=== PATIENT | female | born 1990 | race Caucasian/White ===

== ENCOUNTER 2016-11-14 20:01 | Emergency (ER) | payer SELFPAY ==
[2016-11-14 20:15] VITALS: RESP 20; TEMP 96.5
[2016-11-14] MEDS ORDERED: Sodium Chloride 0.9% 1,000 ML PRIMARY IV ONE ×2 (20:17→21:21)
[2016-11-14] MEDS ORDERED: NORMAL SALINE 10 ML SYRINGE FLUSH IVP PRN (20:17)
[2016-11-14] MEDS ORDERED: ONDANSETRON 4 MG/2 ML VIAL IVP ONE (20:17)
[2016-11-14 20:47] LABS: BASOPHILS # (AUTO) 0.05 10*3/UL; BASOPHILS % (AUTO) 0.3 % (0-1); BILIRUBIN,URINE NEGATIVE (NEG); CLARITY,URINE CLEAR (CLEAR); EOSINOPHILS % (AUTO) 0.8 % (0-8); GLUCOSE, URINE (UA) NEGATIVE (NEG); HEMOGLOBIN 15.4 g/dL (12.0-16.0); IMM GRAN % (AUTO) 0.2 % (0-5); IMM GRAN# (AUTO) 0.04 10*3/UL; LEUKOCYTE ESTERASE ,URINE SMALL (NEG); LYMPHOCYTES # (AUTO) 4.99 10*3/uL; LYMPHOCYTES % (AUTO) 29.5 % (10-50); MEAN CORPUSCULAR HEMOGLOBIN 31.4 PG (27-31); MEAN CORPUSCULAR HGB CONC 36.7 g/dL (33-37); MEAN PLATELET VOLUME 10.5 FL (7.4-12.2); MONOCYTES # (AUTO) 0.65 10*3/UL (0.3-0.8); MONOCYTES % (AUTO) 3.8 % (5-15); NEUTROPHILS # (AUTO) 11.05 10*3/UL; NEUTROPHILS % (AUTO) 65.4 % (50-80); NITRATE,URINE NEGATIVE (NEG); OCCULT BLOOD,URINE NEGATIVE (NEG); PROTEIN,URINE NEGATIVE (NEG); RDW COEFFICIENT OF VARIATION 13.1 % (11.5-14.5); RED BLOOD COUNT 4.91 10^6/uL (4.20-5.40); WHITE BLOOD COUNT 16.92 10^3/uL (4.8-10.8)
[2016-11-14 20:50] LABS: PLATELET MORPHOLOGY COMMENT NORMAL MORPHOLOGY (NORM); URINE SAMPLE TYPE VOIDED SPECIMEN
[2016-11-14 20:53] LABS: BACTERIA,URINE FEW; SQUAMOUS EPITHELIAL CELL,UR MODERATE
[2016-11-14 20:58] LABS: SODIUM 139 meq/L (135-145)
[2016-11-14 20:59] LABS: AMYLASE 48 U/L (30-110); ASPARTATE AMINO TRANSFERASE 13 IU/L (8-39); BILIRUBIN,TOTAL 0.9 mg/dL (0.3-1.2); BLOOD UREA NITROGEN 10 mg/dL (7-22); CALCIUM 9.4 mg/dL (8.7-10.7); CHLORIDE 104 meq/L (98-112); CREATININE 0.5 mg/dL (0.50-1.20); EST GLOMERULAR FILTRATION > 60 (>60 ml/min/1.73m(2)); GLUCOSE 87 mg/dL (78-110); POTASSIUM 3.8 meq/L (3.8-5.2); TOTAL PROTEIN 7.7 g/dL (6.1-8.0)
--- NOTE | 2016-11-14 23:17 | DI ---
HISTORY: Left upper quadrant pain in first trimester. TECHNIQUE: Sonographic images of the pelvis were obtained and submitted for interpretation. FINDINGS: There is a fluid collection in the endometrial complex that is favored to represent a gest ational sac, though there is no pole. Mean sac diameter is 1.4 cm which corresponds with an est imated gestational age of 6 weeks, 2 days. Gestational age by last menstrual period is 5 weeks, 0 day s. The uterus exhibits otherwise normal morphology measuring 9.6 x 6.0 x 7.5 cm. The right ovary measure s 3.2 x 4.2 x 2.6 cm and the left ovary measures 2.7 x 1.6 x 2.3 cm. There is a probable right corpus luteal cyst. There is no adnexal mass or free cul-de-sac fluid. IMPRESSION: 1. Probable gestational sac with ultrasound age of approximately 6 weeks and 2 days, with an estimate d gestational age by last menstrual period of 5 weeks and 0 days. As there is no detectable po le, an ectopic cannot be excluded. Close clinical and laboratory follow-up is recommended w ith low threshold for repeat imaging. 2. Probable right corpus luteal cyst. NOTIFICATION: The above findings were phoned to Marco Hutchinson in the ER Department on 11/15/2016 at 1:25 am EST.
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
[2016-11-15] MEDS ORDERED: Sodium Chloride 0.9% 1,000 ML ONE (06:05)
== END 2016-11-14 22:54 | disposition home or self-care (01) ==
LOC: ER 20:01
DX: O26.891 Other specified pregnancy related conditions, first trimester (principal); R10.12 Left upper quadrant pain; Z3A.01 Less than 8 weeks gestation of pregnancy
CPT/HCPCS: 76801; 80053; 81001; 81003; 82150; 83690; 84702; 84703; 85025; 87088; 96361; 96374; 99283; J2405; J7030

== ENCOUNTER 2016-11-23 09:36 | Emergency (ER) | payer SELFPAY ==
[2016-11-23] MEDS ORDERED: Sodium Chloride 0.9% 1,000 ML PRIMARY IV ONE (09:45)
[2016-11-23] MEDS ORDERED: NORMAL SALINE 10 ML SYRINGE FLUSH IVP PRN (09:45)
[2016-11-23] MEDS ORDERED: ONDANSETRON 4 MG/2 ML VIAL IVP ONE (09:45)
[2016-11-23 09:53] VITALS: RESP 12; TEMP 97.8
[2016-11-23 09:56] LABS: BASOPHILS # (AUTO) 0.01 10*3/UL; BASOPHILS % (AUTO) 0.1 % (0-1); EOSINOPHILS % (AUTO) 0.2 % (0-8); HEMATOCRIT 42.6 % (37.0-47.0); HEMOGLOBIN 15.6 g/dL (12.0-16.0); IMM GRAN % (AUTO) 0.2 % (0-5); IMM GRAN# (AUTO) 0.04 10*3/UL; LYMPHOCYTES # (AUTO) 1.63 10*3/uL; MEAN CORPUSCULAR HEMOGLOBIN 31.6 PG (27-31); MEAN CORPUSCULAR HGB CONC 36.6 g/dL (33-37); MEAN PLATELET VOLUME 10.9 FL (7.4-12.2); MONOCYTES # (AUTO) 0.48 10*3/UL (0.3-0.8); NEUTROPHILS # (AUTO) 14.06 10*3/UL; NEUTROPHILS % (AUTO) 86.5 % (50-80); RDW COEFFICIENT OF VARIATION 13.3 % (11.5-14.5); RED BLOOD COUNT 4.93 10^6/uL (4.20-5.40); WHITE BLOOD COUNT 16.25 10^3/uL (4.8-10.8)
[2016-11-23 09:59] LABS: PLATELET MORPHOLOGY COMMENT NORMAL MORPHOLOGY (NORM)
[2016-11-23 10:01] LABS: AMYLASE 46 U/L (30-110); ASPARTATE AMINO TRANSFERASE 14 IU/L (8-39); BILIRUBIN,TOTAL 1.4 mg/dL (0.3-1.2); BLOOD UREA NITROGEN 8 mg/dL (7-22); CALCIUM 9.8 mg/dL (8.7-10.7); CHLORIDE 105 meq/L (98-112); CREATININE 0.5 mg/dL (0.50-1.20); EST GLOMERULAR FILTRATION > 60 (>60 ml/min/1.73m(2)); GLUCOSE 106 mg/dL (78-110); MAGNESIUM 1.5 mg/dL (1.6-2.4); POTASSIUM 4.1 meq/L (3.8-5.2); SODIUM 140 meq/L (135-145); TOTAL PROTEIN 7.4 g/dL (6.1-8.0)
--- NOTE | 2016-11-23 10:01 | EKG ---
[address] [address] Measurements Intervals [place] Rate: 65 P: 38 GA: 128 QRS: 73 QRSD: 99 T: 55 QT: 385 QTc: 396 Interpretive Statements SINUS RHYTHM WITH SINUS ARRHYTHMIA T WAVE ABNORMALITY CONSISTANT WITH JUVENILE PATTERN Compared to ECG 01/02/2014 05:13:55 No significant changes Electronically Signed On 11-23-16 14:24:21 [facility] by Louie Wright [id number]
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
[2016-11-23] MEDS ORDERED: Magnesium Sulfate 1gm (Premix) 1 GM in Dextrose 1 BAG IV ONE (10:34)
[2016-11-23] MEDS ORDERED: Magnesium Sulfate 1gm (Premix) 100 ML IV ONE (10:42)
[2016-11-23 10:56] LABS: CLARITY,URINE CLEAR (CLEAR); PH,URINE >=9.0 (5.0-8.5); URINE SAMPLE TYPE CLEAN CATCH URINE
[2016-11-23 10:57] LABS: BILIRUBIN,URINE NEGATIVE (NEG); GLUCOSE, URINE (UA) NEGATIVE (NEG); LEUKOCYTE ESTERASE ,URINE NEGATIVE (NEG); NITRATE,URINE NEGATIVE (NEG); OCCULT BLOOD,URINE NEGATIVE (NEG); PROTEIN,URINE 30 mg/dl (NEG); UROBILINOGEN,URINE 0.2 EU/dL (0.2)
[2016-11-23 11:08] LABS: SQUAMOUS EPITHELIAL CELL,UR MODERATE
[2016-11-23] MEDS ORDERED: ACETAMINOPHEN 325 MG TABLET PO ONE (11:15)
[2016-11-23] MEDS ORDERED: Prochlorperazine Edisylate Inj 10mg/2ml vial IVP ONE (11:15)
== END 2016-11-23 12:02 | disposition home or self-care (01) ==
LOC: ER 09:36
DX: O21.0 Mild hyperemesis gravidarum (principal); E86.0 Dehydration; R55 Syncope and collapse; R42 Dizziness and giddiness; R51 Headache; Z3A.01 Less than 8 weeks gestation of pregnancy
CPT/HCPCS: 80053; 81001; 81003; 82150; 82948; 83690; 83735; 84702; 85025; 93005; 93010; 96365; 96375; 99283; J0780; J3475

== ENCOUNTER 2016-12-01 19:29 | Emergency (ER) | payer SELFPAY ==
[2016-12-01] MEDS: Sodium Chloride 0.9% 1,000 ML PRIMARY IV ONE ×2 (19:30→20:54)
[2016-12-01 19:55] VITALS: RESP 18; TEMP 98.8
[2016-12-01] MEDS ORDERED: NORMAL SALINE 10 ML SYRINGE FLUSH IVP PRN (19:56)
[2016-12-01] MEDS ORDERED: ONDANSETRON 4 MG/2 ML VIAL IVP ONE (19:56)
[2016-12-01 20:00] LABS: BASOPHILS # (AUTO) 0.04 10*3/UL; BASOPHILS % (AUTO) 0.2 % (0-1); EOSINOPHILS % (AUTO) 0.4 % (0-8); HEMATOCRIT 45.2 % (37.0-47.0); HEMOGLOBIN 16.6 g/dL (12.0-16.0); IMM GRAN % (AUTO) 0.3 % (0-5); IMM GRAN# (AUTO) 0.05 10*3/UL; LYMPHOCYTES # (AUTO) 4.33 10*3/uL; LYMPHOCYTES % (AUTO) 23.8 % (10-50); MEAN CORPUSCULAR HGB CONC 36.7 g/dL (33-37); MEAN PLATELET VOLUME 10.9 FL (7.4-12.2); MONOCYTES # (AUTO) 1.07 10*3/UL (0.3-0.8); MONOCYTES % (AUTO) 5.9 % (5-15); NEUTROPHILS % (AUTO) 69.4 % (50-80); RDW COEFFICIENT OF VARIATION 12.9 % (11.5-14.5); RED BLOOD COUNT 5.35 10^6/uL (4.20-5.40); WHITE BLOOD COUNT 18.16 10^3/uL (4.8-10.8)
[2016-12-01 20:02] LABS: PLATELET MORPHOLOGY COMMENT NORMAL MORPHOLOGY (NORM)
--- NOTE | 2016-12-01 20:07 | EKG ---
[address] [address] Measurements Intervals [place] Rate: 81 P: 50 TN: 137 QRS: 80 QRSD: 105 T: 61 QT: 358 QTc: 395 Interpretive Statements SINUS RHYTHM WITH SINUS ARRHYTHMIA Compared to ECG 11/23/2016 10:00:06 T-wave abnormality no longer present Electronically Signed On 12-02-16 08:10:01 [facility] by Louie Wright [id number]
[2016-12-01 20:09] LABS: ASPARTATE AMINO TRANSFERASE 81 IU/L (8-39); BILIRUBIN,TOTAL 1.6 mg/dL (0.3-1.2); BLOOD UREA NITROGEN 11 mg/dL (7-22); CALCIUM 10.3 mg/dL (8.7-10.7); CHLORIDE 100 meq/L (98-112); CREATININE 0.4 mg/dL (0.50-1.20); EST GLOMERULAR FILTRATION > 60 (>60 ml/min/1.73m(2)); GLUCOSE 84 mg/dL (78-110); MAGNESIUM 1.7 mg/dL (1.6-2.4); POTASSIUM 3.8 meq/L (3.8-5.2); SODIUM 139 meq/L (135-145); TOTAL PROTEIN 8.2 g/dL (6.1-8.0)
[2016-12-01] MEDS ORDERED: Sodium Chloride 0.9% 1,000 ML PRIMARY IV ONE (20:34)
[2016-12-01 21:20] LABS: BILIRUBIN,URINE NEGATIVE (NEG); CLARITY,URINE CLEAR (CLEAR); GLUCOSE, URINE (UA) NEGATIVE (NEG); LEUKOCYTE ESTERASE ,URINE NEGATIVE (NEG); NITRATE,URINE NEGATIVE (NEG); OCCULT BLOOD,URINE NEGATIVE (NEG); PH,URINE 5.5 (5.0-8.5); PROTEIN,URINE NEGATIVE (NEG); URINE SAMPLE TYPE CLEAN CATCH URINE
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
== END 2016-12-01 21:39 | disposition home or self-care (01) ==
LOC: ER 19:29
DX: O21.0 Mild hyperemesis gravidarum (principal); R55 Syncope and collapse; Z3A.08 8 weeks gestation of pregnancy; Z72.0 Tobacco use
CPT/HCPCS: 80053; 81003; 83735; 84702; 85025; 87804; 93005; 93010; 96361; 96374; 99283; J2405; J7030

== ENCOUNTER 2017-01-05 18:34 | Emergency (ER) | payer OTHER ==
[2017-01-05 19:10] VITALS: RESP 14; TEMP 96.7
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
== END 2017-01-05 19:07 | disposition home or self-care (01) ==
LOC: ER 18:34
DX: S80.01XA Contusion of right knee, initial encounter (principal); M25.551 Pain in right hip; Z33.1 Pregnant state, incidental; W00.0XXA Fall on same level due to ice and snow, initial encounter; Y92.511 Restaurant or cafe as the place of occurrence of the external cause; Y99.0 Civilian activity done for income or pay
CPT/HCPCS: 99282

== ENCOUNTER 2017-01-25 09:07 | Emergency (ER) | payer SELFPAY ==
[2017-01-25 09:23] VITALS: RESP 18; TEMP 97.7
[2017-01-25 09:48] LABS: HEMATOCRIT 38.6 % (37.0-47.0); HEMOGLOBIN 13.8 g/dL (12.0-16.0); MEAN CORPUSCULAR HEMOGLOBIN 31.2 PG (27-31); MEAN CORPUSCULAR HGB CONC 35.8 g/dL (33-37); MEAN PLATELET VOLUME 10.2 FL (7.4-12.2); RED BLOOD COUNT 4.42 10^6/uL (4.20-5.40)
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
== END 2017-01-25 10:19 | disposition home or self-care (01) ==
LOC: ER 09:07
DX: O21.0 Mild hyperemesis gravidarum (principal); K92.0 Hematemesis; Z3A.15 15 weeks gestation of pregnancy
CPT/HCPCS: 36415; 85027; 99282

== ENCOUNTER 2017-02-14 20:58 | Outpatient (CLI) | payer SELFPAY ==
[2017-02-14] MEDS ORDERED: NORMAL SALINE 10 ML SYRINGE FLUSH IVP PRN (21:04)
[2017-02-14] MEDS ORDERED: Lactated Ringers 1,000 ML PRIMARY IV ONE (21:04)
[2017-02-14 21:55] LABS: BASOPHILS # (AUTO) 0.06 10*3/UL; BASOPHILS % (AUTO) 0.4 % (0-1); EOSINOPHILS # (AUTO) 0.13 10*3/UL; EOSINOPHILS % (AUTO) 0.8 % (0-8); HEMATOCRIT 39.3 % (37.0-47.0); HEMOGLOBIN 14.1 g/dL (12.0-16.0); LYMPHOCYTES # (AUTO) 4.31 10*3/uL; MEAN CORPUSCULAR HEMOGLOBIN 31.4 PG (27-31); MEAN CORPUSCULAR HGB CONC 35.9 g/dL (33-37); MEAN CORPUSCULAR VOLUME 87.5 FL (81-99); MONOCYTES # (AUTO) 0.72 10*3/UL (0.3-0.8); MONOCYTES % (AUTO) 4.5 % (5-15); NEUTROPHILS # (AUTO) 10.85 10*3/UL; NEUTROPHILS % (AUTO) 67.1 % (50-80); RED BLOOD COUNT 4.49 10^6/uL (4.20-5.40)
[2017-02-14 21:58] LABS: PLATELET MORPHOLOGY COMMENT NORMAL MORPHOLOGY (NORM); RBC MORPHOLOGY COMMENT NORMAL MORPHOLOGY (NORM); WBC MORPHOLOGY COMMENT NORMAL MORPHOLOGY (NORM)
[2017-02-14 22:16] LABS: AMPHETAMINE SCREEN NEGATIVE (NEG); CANNABINOID SCREEN,URINE POSITIVE (NEG); COCAINE SCREEN NEGATIVE (NEG); METHADONE URINE SCREEN NEGATIVE (NEG); METHAMPHETAMINES SCREEN,URINE NEGATIVE (NEG); OPIATE SCREEN,URINE NEGATIVE (NEG); TRICYCLIC ANTIDEPRESSANT,URINE NEGATIVE (NEG); URINE SAMPLE TYPE CLEAN CATCH URINE
[2017-02-14 23:09] LABS: HIV ANTIBODY NEGATIVE (N); HIV-1 P24 ANTIGEN NEGATIVE (N)
[2017-02-15 00:43] VITALS: RESP 20; TEMP 98.3
--- NOTE | 2017-02-15 12:31 | PDOC(PROG) ---
Intake - - Reason for Visit/Chief Complaint: Low Back Pain Admitted From: Home - Estimated Due Date: 07/05/17 Gestational Age in Weeks and Days: 20 Weeks and 0 Days : 4 Para: 2 Term Births: 2 Living Children: 2 - Labs Blood Type and Rh: O+ Maternal - Vital Signs Last Taken Vital Signs: Vital Signs - Last Taken Temperature 98.3 F 02/14/17 21:04 Pulse Rate 98 02/14/17 21:04 Respiratory Rate 20 02/14/17 21:04 Blood Pressure 104/62 02/14/17 21:04 Pulse Ox 98 02/14/17 21:04 - Uterine Activity Uterine Contraction Monitor Mode: Palpation Contraction Frequency(minutes): 1-2 Contraction Duration (seconds): 10-30 Uterine Contraction Pattern: Irregular Uterine Tone Measurement Phase: Resting Uterine Contraction Intensity: Moderate - Vaginal Discharge Vaginal Bleeding Amount: None Vaginal Discharge Amount: None Monitoring - Uterine Activity Uterine Contraction Monitor Mode: Palpation Contraction Frequency(minutes): 1-2 Contraction Duration (seconds): 10-30 Uterine Contraction Pattern: Irregular Uterine Tone Measurement Phase: Resting Uterine Contraction Intensity: Moderate Results - Labs CBC and BMP: 02/14/17 21:51 - Bedside Testing Bedside Urine Ketone: Negative Bedside Urine Leukocytes Esterase: Trace Bedside Urine Nitrite: Negative Bedside Urine Occult Blood: Negative Bedside Urine Protein: Trace Bedside Specific [place]: 1.030 Assessment and Plan - Patient Problems (1) Acute low back pain Status: Acute (2) Dehydration Status: AcuteSupport Text: Initially quite dehydrated, IVF and oral fluids given. Symptoms resolved. Stressed importance of establishing care with one of our providers for care. panel drawn. Urine tox screen positive for cannabinoids.
[2017-02-18 14:46] LABS: HEP B SURFACE AG Negative (Negative)
== END 2017-02-14 22:30 | disposition home or self-care (01) ==
LOC: OBOP 20:58
PROVIDERS: ATTEND Student in an Organized Health Care Education/Training Program
DX: O26.892 Other specified pregnancy related conditions, second trimester (principal); M54.5 Low back pain; E86.0 Dehydration; Z3A.20 20 weeks gestation of pregnancy
CPT/HCPCS: 59025; 80081; 80305; 81003; 82542; 86900; 86901; 87088; 96360; 99211

== ENCOUNTER → 2017-02-25 | Outpatient (CLI) | payer SELFPAY ==
--- NOTE | 2017-02-25 18:24 | DI ---
OBSTETRICAL ULTRASOUND, 02/25/2017 2:36 PM: Clinical History: Antepartum screening. Previous Exam: 11/14/2016. ADJUSTED DATE FROM EARLY OBUS: 10/10/2016. There is a single live IUP currently in breech presentation. Amnionic fluid content is normal. activity is observed as follows: Cardiac, extremity, and respiratory. The placenta is posterior corpu s and Grade 1. heart rate is 153 beats/minute and regular. There is a 3 vessel cord. The RVOT, LVOT and 4 chamber heart view are normal. The aortic arch and descending aorta are normal. Views of t he spine, face, and kidneys are unremarkable. BPD, HC, AC, and FL measurements are 48 mm, 183 m m, 159 mm, and 35 mm, respectively. These measurements correspond to EGA values of 20 weeks 4 days, 2 0 weeks 5 days, 21 weeks 1 day and 21 weeks 1 day, respectively. Composite EGA is 21 weeks 0 days. Th e US EDC is 07/08/2017. EDC by adjusted LMP is 07/13/2017. Readin. Single live fetus currently in breech presentation with normal amniotic fluid content. Placenta i s posterior corpus and grade 1. 2. The composite EGA is 21 weeks zero days with an ultrasound EDC of 07/08/2017. Based on the adjuste d LMP of 10/10/2016, the EDC would be 07/13/2017. 3. Antepartum screening is normal.
== END ==
LOC: US 14:32
PROVIDERS: ATTEND Family Medicine
DX: Z36 Encounter for antenatal screening of mother (principal); Z3A.20 20 weeks gestation of pregnancy
CPT/HCPCS: 76805

== ENCOUNTER → 2017-02-25 | Outpatient (CLI) | payer SELFPAY ==
[2017-02-25 16:20] LABS: BILIRUBIN,URINE NEGATIVE (NEG); COLOR,URINE YELLOW; GLUCOSE, URINE (UA) NEGATIVE (NEG); NITRATE,URINE NEGATIVE (NEG); OCCULT BLOOD,URINE NEGATIVE (NEG); PROTEIN,URINE NEGATIVE (NEG); UROBILINOGEN,URINE 0.2 mg/dL (0.2)
[2017-02-25 16:26] LABS: CLARITY,URINE CLEAR (CLEAR); SQUAMOUS EPITHELIAL CELL,UR FEW; URINE SAMPLE TYPE VOID
[2017-02-25 16:27] LABS: AMPHETAMINE SCREEN NEGATIVE (NEG); COCAINE SCREEN NEGATIVE (NEG); METHADONE URINE SCREEN NEGATIVE (NEG); METHAMPHETAMINES SCREEN,URINE NEGATIVE (NEG); OPIATE SCREEN,URINE NEGATIVE (NEG); TRICYCLIC ANTIDEPRESSANT,URINE NEGATIVE (NEG); URINE SAMPLE TYPE VOIDED SPECIMEN; URINE SPECIFIC GRAVITY - MAN 1.015
[2017-02-25 16:29] LABS: CANNABINOID SCREEN,URINE POSITIVE (NEG)
== END ==
LOC: US 13:44
PROVIDERS: ATTEND Family Medicine
DX: O99.322 Drug use complicating pregnancy, second trimester (principal); F19.90 Other psychoactive substance use, unspecified, uncomplicated; Z36 Encounter for antenatal screening of mother; Z3A.20 20 weeks gestation of pregnancy
CPT/HCPCS: 80305; 81001; 82542

== ENCOUNTER → 2017-05-16 | Outpatient (CLI) | payer SELFPAY ==
--- NOTE | 2017-05-17 18:17 | DI ---
LIMITED OBSTETRICAL ULTRASOUND, 05/16/2017 10:19 AM Clinical History: High-risk . The patient continues to smoke in the third trimester of pregn megha. Previous Exam: 02/25/2017. ADJUSTED LMP: 10/06/2016. There is a single live IUP currently in vertex presentation. Amnionic fluid content is normal. Amniot ic fluid index is 18.4 cm. activity is observed as follows: cardiac and extremity. The placenta is posterior corpus and Grade 2. heart rate is 132 beats/minute and regular. BPD, HC, AC, and FL measurements are 79 mm, 294 mm, 276 mm, and 61 mm, respectively. These measurements correspond to EGA values of 31 weeks 5 days, 32 weeks 4 days, 31 weeks 5 days, and 31 weeks 5 days, respectively. C omposite EGA is 32 weeks 0 days. The US EDC is 07/11/2017. EDC by adjusted LMP is 07/13/2017. LMP percent ile is 40%. Estimated weight is 1830 g, plus or minus 267 g. Readin. Single live fetus with vertex presentation and normal amniotic fluid content. Placenta is posteri or corpus and grade 2. 2. The composite EGA is 32 weeks zero days with an ultrasound EDC of 07/11/2017. Based on the adjusted LMP date of 10/06/2016, the EDC would be 07/13/2017. 3. LMP percentile is 40%. Estimated weight is 1830 g, plus or minus 267 g.
== END ==
LOC: US 10:16
PROVIDERS: ATTEND Family Medicine
DX: O99.333 Smoking (tobacco) complicating pregnancy, third trimester (principal); Z3A.31 31 weeks gestation of pregnancy
CPT/HCPCS: 76815

== ENCOUNTER → 2017-06-18 | Outpatient (CLI) | payer SELFPAY | LOC: LAB 11:05 | PROVIDERS: ATTEND Family Medicine | DX: Z36 Encounter for antenatal screening of mother (principal); Z3A.36 36 weeks gestation of pregnancy | CPT/HCPCS: 87150 ==

== ENCOUNTER → 2017-06-27 | Outpatient (CLI) | payer SELFPAY ==
--- NOTE | 2017-06-27 14:36 | DI ---
History: Uterine size date discrepancy and third trimester. Gestational age by last menstrual period is 37 weeks 5 days. Comparison: May 16, 2017 Findings: Is a single live intrauterine fetus the heart rate of 100 beats per minute. Estimated weight is 2826 g, or 6 lbs. 4 oz. Average ultrasound age is 36 weeks 2 days. Gestational age by last menstrual period is 37 weeks 5 day s. YVETTE by sonographic measurements is 07/23/2017 YVETTE by last menstrual period is 07/13/2017. DENISE is normal at 13.6 cm. Impression: Single live intrauterine fetus. Sonographic dates correlate adequately with the dates based on last menstrual period Sonographic dates are within normal limits as compared with the dates based on the May 16, 2017 days.
== END ==
LOC: US 11:28
PROVIDERS: ATTEND Family Medicine
DX: O26.843 Uterine size-date discrepancy, third trimester (principal); Z3A.37 37 weeks gestation of pregnancy
CPT/HCPCS: 76815

== ENCOUNTER 2017-07-04 01:05 | Outpatient (CLI) | payer SELFPAY ==
[2017-07-04] MEDS ORDERED: NORMAL SALINE 10 ML SYRINGE FLUSH IVP PRN (01:29)
[2017-07-04 02:05] VITALS: RESP 16; TEMP 98
--- NOTE | 2017-07-04 17:32 | PDOC(PROG) ---
Intake - - Reason for Visit/Chief Complaint: Contractions Admitted From: Home - Estimated Due Date: 07/13/17 Gestational Age in Weeks and Days: 38 Weeks and 5 Days : 4 Para: 2 Term Births: 2 Number of Abortions (Spont./Elective): 1 Living Children: 2 - Labs Blood Type and Rh: O+ Group B Strep: Negative Hepatitis B Surface Antigen: Absent HIV: Negative Rubella Status: Immune VDRL/RPR: Absent Maternal - Vital Signs Last Taken Vital Signs: Vital Signs - Last Taken Temperature 98.0 F 07/04/17 01:28 Pulse Rate 87 07/04/17 01:28 Respiratory Rate 16 07/04/17 01:28 Blood Pressure 119/73 07/04/17 01:28 Pulse Ox 97 07/04/17 01:28 - Uterine Activity Uterine Contraction Monitor Mode: External Contraction Frequency(minutes): 2-5 Contraction Duration (seconds): 40-90 Uterine Contraction Pattern: Regular Uterine Tone Measurement Phase: Resting Uterine Contraction Intensity: Mild - Cervical Exam Cervical Dilation (cm): 3-4 Cervical Effacement Percentage: 60 Station: -2 - Vaginal Discharge Vaginal Bleeding Amount: None Vaginal Discharge Amount: None Vaginal Itching: No Monitoring - Uterine Activity Uterine Contraction Monitor Mode: External Contraction Frequency(minutes): 2-5 Contraction Duration (seconds): 40-90 Uterine Contraction Pattern: Regular Uterine Tone Measurement Phase: Resting Uterine Contraction Intensity: Mild Results - Bedside Testing Bedside Urine Ketone: Negative Bedside Urine Leukocytes Esterase: Negative Bedside Urine Nitrite: Negative Bedside Urine Occult Blood: Negative Bedside Urine Protein: Negative Bedside Specific [place]: 1.025 Assessment and Plan - Patient Problems (1) Dehydration Status: Acute (2) EARLY LABOR Status: Acute
== END 2017-07-04 01:55 | disposition home or self-care (01) ==
LOC: OBOP 01:05
PROVIDERS: ATTEND Student in an Organized Health Care Education/Training Program
DX: O60.03 Preterm labor without delivery, third trimester (principal); O26.893 Other specified pregnancy related conditions, third trimester; E86.0 Dehydration; Z3A.38 38 weeks gestation of pregnancy
CPT/HCPCS: 59025; 81003; 99211

== ENCOUNTER 2017-07-05 13:58 | Outpatient (CLI) | payer SELFPAY ==
[2017-07-05] MEDS ORDERED: NORMAL SALINE 10 ML SYRINGE FLUSH IVP PRN (17:07)
[2017-07-05 17:12] VITALS: RESP 18; TEMP 98.1
--- NOTE | 2017-07-08 22:30 | PDOC(PROG) ---
Intake - - Reason for Visit/Chief Complaint: Contractions Admitted From: Home - Estimated Due Date: 07/13/17 Gestational Age in Weeks and Days: 39 Weeks and 2 Days Para: 2 Term Births: 2 Number of Abortions (Spont./Elective): 1 Living Children: 2 - Labs Blood Type and Rh: O+ Maternal - Vital Signs Last Taken Vital Signs: Vital Signs - Last Taken Temperature 98.1 F 07/05/17 14:05 Pulse Rate 94 07/05/17 14:05 Respiratory Rate 18 07/05/17 14:05 Blood Pressure 107/67 07/05/17 14:05 Pulse Ox 98 07/05/17 14:05 - Uterine Activity Uterine Contraction Monitor Mode: External Contraction Frequency(minutes): 1.3-3.5 Contraction Duration (seconds): 30-100 Uterine Contraction Pattern: Irregular Uterine Tone Measurement Phase: Resting Uterine Contraction Intensity: Moderate - Vaginal Discharge Vaginal Bleeding Amount: None Vaginal Discharge Amount: None Monitoring - Uterine Activity Uterine Contraction Monitor Mode: External Contraction Frequency(minutes): 1.3-3.5 Contraction Duration (seconds): 30-100 Uterine Contraction Pattern: Irregular Uterine Tone Measurement Phase: Resting Uterine Contraction Intensity: Moderate Results - Bedside Testing Bedside Urine Ketone: Negative Bedside Urine Leukocytes Esterase: Negative Bedside Urine Nitrite: Negative Bedside Urine Occult Blood: Negative Bedside Specific [place]: 1.025 Assessment and Plan - Patient Problems (1) False labor after 37 completed weeks of gestation Status: Acute
== END 2017-07-05 15:40 | disposition home or self-care (01) ==
LOC: OBOP 13:58
PROVIDERS: ATTEND Family Medicine
DX: O60.03 Preterm labor without delivery, third trimester (principal); Z3A.38 38 weeks gestation of pregnancy
CPT/HCPCS: 59025; 81003

== ENCOUNTER 2017-07-07 02:17 | Inpatient (IN) ==
[2017-07-07] MEDS ORDERED: ONDANSETRON 4 MG/2 ML VIAL IVP PRN ×2 (05:55→19:04)
[2017-07-07] MEDS ORDERED: CALCIUM CARBONATE 500 MG (TUMS) CHEWABLE TABLET PO PRN ×2 (05:55→19:04)
[2017-07-07] MEDS ORDERED: Lidocaine 1% 10 MG/ML - 20 ML VIAL SUBCUT PRN (05:55)
[2017-07-07] MEDS ORDERED: Phenylephrine Inj 50 MCG in Normal Saline Flush 0.5 ML IVP PRN (05:55)
[2017-07-07] MEDS ORDERED: OXYTOCIN 10 UNIT/1 ML IM PRN (05:55)
[2017-07-07] MEDS ORDERED: CefOXitin Inj 2 GM in Sodium Chloride 0.9% 100 ML IV PRN (05:55)
[2017-07-07] MEDS ORDERED: Metoclopramide Inj 10 MG/2 ML VIAL IV PRN (05:55)
[2017-07-07] MEDS ORDERED: diphenhydrAMINE 50 MG/1 ML VIAL IVP PRN ×2 (05:55→19:04)
[2017-07-07] MEDS ORDERED: LIDOCAINE W/ SODIUM BICARB 0.5 ML SYR SUBD PRN (05:55)
[2017-07-07] MEDS ORDERED: BUTORPHANOL TARTRATE 2 MG/1 ML VIAL IVP PRN (05:55)
[2017-07-07] MEDS ORDERED: METHYLERGONOVINE MALEATE 0.2 MG/1 ML VIAL IM PRN ×2 (05:55→19:04)
[2017-07-07] MEDS ORDERED: NALOXONE 0.4 MG/1 ML VIAL IVP PRN (05:55)
[2017-07-07] MEDS ORDERED: Carboprost Inj 250 MCG/ML AMP IM PRN ×2 (05:55→19:04)
[2017-07-07] MEDS ORDERED: Famotidine Inj 20 MG in Normal Saline Flush 10 ML IVP PRN ×4 (05:55)
[2017-07-07] MEDS ORDERED: Naloxone Inj 0.01 MG in Normal Saline Flush 1 ML IVP PRN (05:55)
[2017-07-07] MEDS ORDERED: Nalbuphine Inj 20 MG/ML Ampule IVP PRN ×2 (05:55→19:04)
[2017-07-07] MEDS ORDERED: TERBUTALINE SULFATE 1 MG/1 ML SDV SUBCUT PRN (05:55)
[2017-07-07] MEDS ORDERED: ePHEDrine Inj 5 MG in Normal Saline Flush 1 ML IVP PRN (05:55)
[2017-07-07] MEDS ORDERED: NORMAL SALINE 10 ML SYRINGE FLUSH IVP PRN ×2 (05:55→19:04)
[2017-07-07] MEDS ORDERED: CITRIC ACID/SODIUM CITRATE 30 ML CUP PO PRN (05:55)
[2017-07-07] MEDS ORDERED: MISOPROSTOL 200 MCG TABLET RECTAL PRN (05:55)
[2017-07-07] MEDS ORDERED: Oxytocin 20 Units + LR 1,000 ML IV SCH ×3 (06:00→19:04)
[2017-07-07] MEDS: Lactated Ringers-OB Dept 1,000 ML PRIMARY IV SCH ×2 (06:20→13:59)
[2017-07-07 06:46] LABS: Hematocrit [HCT] 42.1 % (37.0-47.0); MEAN CORPUSCULAR HEMOGLOBIN 31.8 PG (27-31); MEAN CORPUSCULAR HGB CONC 35.6 g/dL (33-37); MEAN CORPUSCULAR VOLUME 89.2 FL (81-99); MEAN PLATELET VOLUME 11.6 FL (7.4-12.2); RED BLOOD COUNT 4.72 10^6/uL (4.20-5.40)
[2017-07-07] MEDS: fentaNYL Inj 100 MCG/2 ML VIAL IV PRN ×2 (15:05→16:55)
--- NOTE | 2017-07-07 17:59 | OB.PROGRES ---
Subjective Post Day: 1 Pain Management: PO Pettit Catheter: No Diet: NPO (for tubal ligation) Feeding Method: Formula Feeding Ambulating: Yes Concerns / Additional Information: Normal lochia. Back is a little bit sore, but no other complaints. Objective - General General Appearance: POSITIVE: No Acute Distress, Cooperative - Cardiovacular Cardiovascular Exam: POSITIVE: RRR, No Murmur Edema: No Pedal Edema Extremities: Negative Bruce's - Bilaterally - Respiratory Respiratory Exam: POSITIVE: Clear to Auscultation - Bilaterally, Breathing Non Labored - Abdomen Bowel Sounds: Present - Fundus/Lochia/Perineum Uterus Consistency: Firm Assesstment / Plan (1) Status post vaginal delivery Current Visit: Yes Status: Acute Assessment / Plan: -going for tubal ligation this am, no questions regarding this. -post-delivery H&H is stable. -bottle feeding. -rh positive. -rubella immune. -pt requesting d/c later this afternoon.
[2017-07-07 18:00] LABS: AMPHETAMINE SCREEN NEGATIVE (NEG); CANNABINOID SCREEN,URINE NEGATIVE (NEG); COCAINE SCREEN NEGATIVE (NEG); METHADONE URINE SCREEN NEGATIVE (NEG); METHAMPHETAMINES SCREEN,URINE NEGATIVE (NEG); OPIATE SCREEN,URINE NEGATIVE (NEG); URINE SAMPLE TYPE VOIDED SPECIMEN; URINE SPECIFIC GRAVITY - MAN 1.006
--- NOTE | 2017-07-07 18:29 | OB.DEL.SUM ---
Delivery Note Delivery Summary: Pt is a 26 yo G4 now P3 at 39 1/7 weeks by early ron/s who presented to labor and delivery this morning for induction at term. Her cervix was 3-4/60/-2 on admission. Pitocin augmentation was initiated. She underwent AROM with clear fluid at 0845. She progressed slowly through the morning; an IUPC was placed early this afternoon for slow cervical change. Once her contractions were adequate, she had a quick active labor. She went from 8 to delivered in 13 minutes with no pain medications. I was at the clinic, but walked in the room as the baby delivered. There was a nuchal cord x 1. The nose and mouth were suctioned with a bulb suction and the cord was clamped and cut. Baby was dried off and taken to the warmer. Time of delivery was 1650. The placenta delivered spontaneously and intact with a 3 vessel cord shortly thereafter. The vagina and perineum were examined and a small, first degree vaginal laceration was noted and repaired in the normal fashion after infiltration with 1% lidocaine. EBL 300 cc. Apgars were 8 at 1 minute and 9 at 5 minutes. Baby weighed 7#2oz and was 21 inches long. Both mom and baby tolerated delivery well and are in stable condition at the current time.
[2017-07-07] MEDS ORDERED: diphenhydrAMINE 25 MG CAPSULE PO PRN (19:04)
[2017-07-07] MEDS ORDERED: Methylergonovine Tab 0.2 MG TAB PO PRN (19:04)
[2017-07-07] MEDS ORDERED: BENZOCAINE/MENTHOL SPRAY 56 GM BOTTLE TOPICAL PRN (19:04)
[2017-07-07] MEDS ORDERED: Ondansetron ODT Tab 4 MG TAB PO PRN (19:04)
[2017-07-07] MEDS ORDERED: ACETAMINOPHEN 325 MG TABLET PO PRN (19:04)
[2017-07-07] MEDS ORDERED: DIPH,PERTUSS,TET(ADACEL) VAC/PF 0.5 ML (Tdap) IM ONE (19:04)
[2017-07-07] MEDS ORDERED: OXYTOCIN 10 UNIT/1 ML IM ONE (19:04)
[2017-07-07] MEDS ORDERED: GLYCERIN/WITCH HAZEL 1 BOX TOPICAL PRN (19:04)
[2017-07-07] MEDS ORDERED: MISOPROSTOL 200 MCG TABLET RECTAL ONE (19:04)
[2017-07-07] MEDS ORDERED: HYDROcodone-APAP 5 MG -325 MG TABLET PO PRN (19:04)
[2017-07-07] MEDS ORDERED: LANOLIN HPA 40 GM TUBE TOPICAL PRN (19:04)
[2017-07-07] MEDS: DOCUSATE 100 MG CAPSULE PO SCH (21:10)
[2017-07-07] MEDS: IBUPROFEN 800 MG TABLET PO PRN (22:22)
[2017-07-08] MEDS: Lactated Ringers 1,000 ML PRIMARY IV SCH ×2 (00:01→09:38)
[2017-07-08 05:30] LABS: Hemoglobin [HGB] 12.4 g/dL (12.0-16.0); MEAN CORPUSCULAR HEMOGLOBIN 31.9 PG (27-31); MEAN CORPUSCULAR HGB CONC 35.4 g/dL (33-37); MEAN PLATELET VOLUME 11.4 FL (7.4-12.2); RED BLOOD COUNT 3.89 10^6/uL (4.20-5.40)
[2017-07-08] MEDS ORDERED: Prenatal Multivitamin Tab 1 TAB TAB PO SCH (09:00)
[2017-07-08] MEDS ORDERED: fentaNYL Inj 250 MCG/5 ML VIAL ONE (09:09)
[2017-07-08] MEDS ORDERED: MIDAZOLAM 5 MG/1 ML ONE (09:09)
[2017-07-08] MEDS ORDERED: LIDOCAINE MPF 2% - 5 ML (20 MG/1 ML) ONE (09:09)
[2017-07-08] MEDS ORDERED: BUPIVACAINE 0.5% W/ EPI - 10 ML VIAL ONE (09:11)
[2017-07-08] MEDS ORDERED: HYDROmorphone 2 MG/1 ML IVP PRN (09:17)
[2017-07-08] MEDS ORDERED: NORMAL SALINE 10 ML SYRINGE FLUSH IVP PRN (09:17)
[2017-07-08] MEDS ORDERED: PROMETHAZINE 25 MG/1 ML VIAL IM PRN (09:17)
[2017-07-08] MEDS ORDERED: fentaNYL Inj 100 MCG/2 ML VIAL IVP PRN (09:17)
[2017-07-08] MEDS ORDERED: ONDANSETRON 4 MG/2 ML VIAL IVP PRN (09:17)
[2017-07-08] MEDS ORDERED: SUCCINYLCHOLINE CHLORIDE 20 MG/1 ML - 10 ML ONE (09:20)
[2017-07-08] MEDS ORDERED: KETOROLAC 30 MG/1 ML VIAL ONE (09:48)
[2017-07-08] MEDS ORDERED: ONDANSETRON 4 MG/2 ML VIAL ONE (09:48)
--- NOTE | 2017-07-08 10:11 | OB.OP.NOTE ---
Operative Report Surgeon: Juan F Anesthesia Type: General Anesthesia Provider: Twin Garcia CRNA Surgery Date: 07/08/17 Preoperative Diagnosis: Desires Sterilization Postoperative Diagnosis: Same Procedure: PPTL with Filshie Clips Estimated Blood Loss (mL): 0 Fluids: 800 ml Complications: None Findings at Surgery: Normal tubes. Indications for the Procedure: Desires sterilization Description of Procedure: The patient was taken to the OR and placed supine where GETA was given. She was prepped and draped. A small, transverse infraumbilical incision was made after local injection. The fascia was divided with cautery and the peritoneal cavity was entered. The right tube was identified and followed to the fimbria. A single Filshie clip was applied to the isthmic portion. The right tube was identified and followed to the fimbria. A single Filshie clip was applied to the isthmic portion. The fascia was then closed with 0 Vicryl suture. The sub cutaneous space was closed with 3-0 Vicryl. The skin was closed with Dermabond. There were no complications and the patient left to recovery in good condition. Plan: Routine post op care.
[2017-07-08] MEDS: DOCUSATE 100 MG CAPSULE PO SCH (11:14)
[2017-07-08 11:54] VITALS: RESP 14; TEMP 98.4
[2017-07-08] MEDS: IBUPROFEN 800 MG TABLET PO PRN (11:54)
[2017-07-08] MEDS ORDERED: Lidocaine Inj 1% 20 ML ONE (17:59)
--- NOTE | 2017-08-07 22:22 | DCSUMMARY ---
Hospitalization Summary Admit Date: 07/07/17 Discharge Date: 07/08/17 Primary Diagnosis:: Term IUP Secondary Diagnosis:: Desired parity Other Surgery and Date: bilateral tubal ligation per Dr. Rogel on 07/08. Delivery Type: Vaginal Hospital Course: Pt was admitted for induction of labor at term. She had a normal vaginal delivery. For details of the delivery, please see separate delivery summary elsewhere in the chart. / Postop Complications: none Complications: none Exam - Vitals Vital Signs: Vital Signs Temperature 98.4 F Temperature Source Oral Pulse Rate [Pulse Oximeter] 51 Pulse Rate 72 Respiratory Rate 14 Blood Pressure [Right Arm] 102/58 Blood Pressure [Left Arm] 111/62 Blood Pressure 112/65 Pulse Ox 96 Oxygen Delivery Method Room Air Height 5 ft 7 in Weight 172 lb - General General Appearance: No Acute Distress, Cooperative - Head Head Exam: Normal Inspection - Respiratory Respiratory Exam: POSITIVE: Clear to Auscultation - Bilaterally, Breathing Non Labored - Cardiovascular Cardiovascular Exam: POSITIVE: RRR, No Murmur - GI/Abdominal GI/Abdominal Exam: POSITIVE: Normal Bowel Sounds, Non Tender, Non Distended, Soft - Extremities Extremities Exam: POSITIVE: Normal Inspection, Normal Capillary Refill - Neurological Neurological Exam: POSITIVE: Alert, Oriented x 3 - Psychiatric Psychiatric Exam: POSITIVE: Normal Affect, Normal Mood - Integumentary Integumentary Exam: POSITIVE: Normal Color, Warm, Dry Patient Problems - Patient Problem List (1) Status post vaginal delivery Status: Acute Category: Medical
== END 2017-07-08 18:11 | disposition home or self-care (01) | DRG 767 ==
LOC: OBIP 06:10
PROVIDERS: ADMIT Family Medicine; ATTEND Family Medicine